=== PATIENT | female | born 1930 | race Caucasian/White ===

== ENCOUNTER → 2017-07-24 | Outpatient (CLI) | payer BC ==
[~2017-07-24] MED LIST: ASCO1CAP3 PO; ATOR10TA82 PO; CHOL100010 PO; CRAN1CAP15 PO; IBUP-1050 PO; MISCCAP80 PO; POLY335019 PO; RXC5 PO; SNG10 PO
[2017-07-24 16:57] LABS: BASO % 0.6 %; BASO ABS # 0.06 K/uL (0-0.2); COMPLETE YES; EOS % 1.4 %; HEMATOCRIT 45.1 % (37-47); IG% 0.2 %; LYMPH % 40.8 %; MEAN CELL VOLUME 96.8 fL (80-100); MEAN CORPUSCULAR HEMOGLOBIN 32.4 pg (25-34); MEAN CORPUSCULAR HGB CONC 33.5 g/dl (32-36); MEAN PLATELET VOLUME 9.7 fL (7.4-10.4); MONO % 9.1 %; NEUT % 47.9 %; PLATELET COUNT 265 K/uL (130-400); RED BLOOD COUNT 4.66 M/uL (4.2-5.4); WHITE BLOOD COUNT 10.78 K/uL (4.8-10.8)
[2017-07-24 17:15] LABS: BLOOD UREA NITROGEN 21 mg/dl (7-18); CALCIUM 9.2 mg/dl (8.5-10.1); CARBON DIOXIDE 29 mmol/L (21-32); CHLORIDE 103 mmol/L (98-107); CREATININE 0.84 mg/dl (0.60-1.20); GLUCOSE 102 mg/dl (70-99); POTASSIUM 4.1 mmol/L (3.5-5.1); SODIUM 138 mmol/L (136-145)
== END | disposition home or self-care (01) ==
LOC: C.LABBC 13:45
PROVIDERS: ATTEND Internal Medicine Geriatric Medicine
DX: I10 Essential (primary) hypertension (principal); M81.0 Age-related osteoporosis without current pathological fracture; J45.909 Unspecified asthma, uncomplicated

== ENCOUNTER → 2017-10-02 | Outpatient (CLI) | payer BC ==
--- NOTE | 2017-10-02 12:35 | DIAGNOSTIC IMAGING REPORT ---
KUB HISTORY: Acute generalized abdominal pain with constipation R30.0 COMPARISON: None available FINDINGS: The bowel gas pattern is non-obstructive. Moderate to extensive formed stool is seen throughout the colon extending from the cecum through the rectosigmoid. There is no organomegaly. Calcifications of the pelvis suggest phleboliths. No renal calculi. No ureteral calculi. No pneumoperitoneum or pneumatosis. No fracture. Mild levoscoliosis of the lumbar spine with posterior tahir and screw fusion hardware extending from L4 to S1. Multilevel intervertebral disc space narrowing and endplate spurring of the spine. Moderate degenerative changes of the bilateral hips. IMPRESSION: 1. Moderate to extensive pancolonic stool suggests constipation. 2. Nonobstructive bowel gas pattern. Electronically signed by: Martin Viera M.D. 10/02/2017 12:34 PM Dictated Date/Time: 10/02/2017 12:30 PM
== END | disposition home or self-care (01) ==
LOC: C.RAD1850 12:14
PROVIDERS: ATTEND Family Medicine
DX: R30.0 Dysuria (principal)

== ENCOUNTER → 2017-12-18 | Outpatient (CLI) | payer BC ==
[~2017-12-18] MED LIST changes: +ACET-1256 PO; -CHOL100010 PO; +CHOL1CAP67 PO; -CRAN1CAP15 PO; +CRAN500C2 PO; -IBUP-1050 PO; -MISCCAP80 PO; +PROB1CAP27 PO; -RXC5 PO; -SNG10 PO; +TRAM-10 PO
== END | disposition home or self-care (01) ==
LOC: C.LABBC 09:39
PROVIDERS: ATTEND Physician Assistant Medical
DX: N39.0 Urinary tract infection, site not specified (principal)

== ENCOUNTER 2018-01-02 05:42 | Inpatient (IN) | payer BC, OTHER ==
[2017-12-04 09:15] VITALS: BMI 29.0
--- NOTE | 2017-12-04 09:54 | PAT Medication Instructions ---
Service Date Dec 04, 2017. Current Home Medication List Acetaminophen (Tylenol), 2 TAB PO UD PRN for Pain Ascorbic Acid (Vitamin C), 1 CAP PO QPM Atorvastatin (Lipitor), 10 MG PO QPM Cholecalciferol (Vitamin D-3), 1 CAP PO QAM Cranberry (Vaccinium Macrocarp (Cranberry), 1 CAP PO QAM Polyethylene Glycol 3350 (Miralax), 17 GM PO UD PRN for Constipation Probiotic Product (Trubiotics), 1 CAP PO QAM Tramadol (Ultram), Unknown Dose PO QAM PRN for Pain Medication Instructions For Your Scheduled Surgery - Hold the following medications the morning of surgery: Cholecalciferol (Vitamin D-3), 1 CAP PO QAM Cranberry (Vaccinium Macrocarp (Cranberry), 1 CAP PO QAM Polyethylene Glycol 3350 (Miralax), 17 GM PO UD PRN for Constipation Probiotic Product (Trubiotics), 1 CAP PO QAM - Take the following medications the morning of surgery with a sip of water: Acetaminophen (Tylenol), 2 TAB PO UD PRN for Pain (if needed, can be taken up to four hours before surgery) Tramadol (Ultram), Unknown Dose PO QAM PRN for Pain (if needed, can be taken up to four hours before surgery) - Take the following medications as scheduled the night before surgery: Acetaminophen (Tylenol), 2 TAB PO UD PRN for Pain (if needed) Ascorbic Acid (Vitamin C), 1 CAP PO QPM Atorvastatin (Lipitor), 10 MG PO QPM Tramadol (Ultram), Unknown Dose PO QAM PRN for Pain (if needed) If you have any questions please call us at [phone] or [phone] or [phone]
--- NOTE | 2017-12-04 10:50 | DIAGNOSTIC IMAGING REPORT ---
CHEST 2 VIEWS ROUTINE HISTORY: 87 years-old Female PAT preoperative exam. No acute chest complaints. COMPARISON: Chest radiograph 10/21/2015 TECHNIQUE: PA and lateral views of the chest FINDINGS: Cardiac silhouette is mildly enlarged, unchanged. Atherosclerosis of the aorta. Lungs are mildly hyperinflated with diaphragmatic flattening. Moderate to large hiatal hernia. No pneumothorax, pleural effusion or overt pulmonary edema. Minimal subsegmental left basilar atelectasis/scarring. Bones of the chest appear grossly intact. Partially imaged fusion hardware of the lumbar spine. Degenerative changes are seen within the shoulders and spine. IMPRESSION: 1. Cardiomegaly without overt pulmonary edema. 2. Moderate to large hiatal hernia with partially intrathoracic stomach. The above report was generated using voice recognition software. It may contain grammatical, syntax or spelling errors. Electronically signed by: Martin Viera M.D. 12/04/2017 10:49 AM Dictated Date/Time: 12/04/2017 10:47 AM
[2017-12-04 11:27] LABS: BASO % 0.5 %; BASO ABS # 0.04 K/uL (0-0.2); EOS % 1.7 %; EOS ABS # 0.14 K/uL (0-0.5); HEMATOCRIT 44.3 % (37-47); HEMOGLOBIN 15.1 g/dL (12.0-16.0); IG# 0.01 K/uL (0.00-0.02); LYMPH % 42.7 %; LYMPH ABS # 3.61 K/uL (1.2-3.4); MEAN CELL VOLUME 94.5 fL (80-100); MEAN CORPUSCULAR HEMOGLOBIN 32.2 pg (25-34); MEAN CORPUSCULAR HGB CONC 34.1 g/dl (32-36); MEAN PLATELET VOLUME 9.3 fL (7.4-10.4); MONO % 9.9 %; MONO ABS # 0.84 K/uL (0.11-0.59); NEUT % 45.1 %; NEUT ABS # 3.81 K/uL (1.4-6.5); PLATELET COUNT 233 K/uL (130-400); RED CELL DISTRIBUTION WIDTH CV 13.8 % (11.5-14.5); RED CELL DISTRIBUTION WIDTH SD 47.6 fL (36.4-46.3); WHITE BLOOD COUNT 8.45 K/uL (4.8-10.8)
[2017-12-04 11:37] LABS: CALCIUM 8.9 mg/dl (8.5-10.1); CREATININE 0.64 mg/dl (0.60-1.20); POTASSIUM 4.1 mmol/L (3.5-5.1)
[2018-01-02] VITALS (14 sets, daily range): BP systolic 114–164; BP diastolic 67–85; PULSE 60–93; TEMP 36.3–36.6; O2SAT 88–98; Ht 152.4 cm; Wt 67.5 kg
[~2018-01-02] VITALS: Ht 152.4 cm; Wt 67.5 kg
[2018-01-02] MEDS ORDERED: CEFAZOLIN 1000MG IV PUSH 7.5 ML IV SCH (06:00)
[2018-01-02] MEDS ORDERED: LACTATED RINGER'S 1000ML 1,000 ML IV SCH (06:00)
[2018-01-02] MEDS ORDERED: CeleBREX 200 MG CAP PO SCH (06:00)
[2018-01-02] MEDS ORDERED: GABAPENTIN 300 MG CAP PO SCH (06:00)
[2018-01-02] MEDS ORDERED: ACETAMINOPHEN 500 MG TAB PO SCH (06:00)
[2018-01-02] MEDS ORDERED: ONDANSETRON INJ 2 MG/ML 2 ML VIAL ONE (06:50)
[2018-01-02] MEDS ORDERED: GLYCOPYRROLATE INJ 0.2 MG/ML VIAL ONE (06:50)
[2018-01-02] MEDS ORDERED: NEOSTIGMINE METHYLSULFATE 1 MG/ML 10ML VIAL ONE (06:50)
[2018-01-02] MEDS ORDERED: PROPOFOL IV EMULSION 10 MG/ML 20 ML VIAL ONE (06:50)
[2018-01-02] MEDS ORDERED: LIDOCAINE HCL 2% 2 ML VIAL (20MG/ML) ONE (06:50)
[2018-01-02] MEDS ORDERED: DEXAMETHASONE SOD INJ 4 MG/ML VIAL ONE (06:50)
[2018-01-02] MEDS ORDERED: FENTANYL CITRATE INJ 50 MCG/1 ML 2 ML VIAL ONE ×2 (06:50→08:55)
[2018-01-02] MEDS ORDERED: MIDAZOLAM HCL 1 MG/ML 2ML VIAL ONE (06:50)
[2018-01-02] MEDS ORDERED: BACITRACIN 50000 UNIT VIAL ONE (06:58)
[2018-01-02] MEDS ORDERED: BUPIVACAINE/EPINEPHRINE 0.5% MPF 1:200,000 30 ML VIAL ONE (07:03)
--- NOTE | 2018-01-02 07:25 | History & Physical Bridge Note ---
H&P Re-Evaluation Bridge Note: I have examined the patient, reviewed the History & Physical and in the interval since the performance of the History & Physical I have noted the following changes of clinical significance: No changes noted
--- NOTE | 2018-01-02 07:26 | History and Physical ---
History & Physical Date January 02, 2018. Chief Complaint Back and leg pain History of Present Illness The patient is a 87 year old female with complaints of back and leg pain Past Medical/Surgical History Medical Problems: (1) Arthritis (2) Hyperlipemia (3) Myalgia (4) Osteoporosis Additional History Hepatic Disease: No Endocrine Disorder: No Kidney Disease: No Hypertension: No Heart Disease: No Bleeding Tendencies: No Infectious Diseases: No Allergies Coded Allergies: Alendronate (Verified Adverse Reaction, Intermediate, GI SYMPTOMS, 01/02/18) Ciprofloxacin (Verified Adverse Reaction, Intermediate, GI SYMPTOMS, ) Naproxen (Verified Adverse Reaction, Intermediate, GI SYMPTOMS, 01/02/18) Home Medications Scheduled Ascorbic Acid (Vitamin C), 1 CAP PO QPM Atorvastatin (Lipitor), 10 MG PO QPM Cholecalciferol (Vitamin D-3), 1 CAP PO QAM Cranberry (Vaccinium Macrocarp (Cranberry), 1 CAP PO QAM Probiotic Product (Trubiotics), 1 CAP PO QAM Scheduled PRN Acetaminophen (Tylenol), 2 TAB PO UD PRN for Pain Polyethylene Glycol 3350 (Miralax), 17 GM PO UD PRN for Constipation Tramadol (Ultram), Unknown Dose PO QAM PRN for Pain Physical Examination Skin: warm/dry, no rash Eyes: normal inspection, EOMI, sclerae normal ENT: normal ENT inspection, pharynx normal Head: normocephalic, atraumatic Neck: supple, no adenopathy, trachea midline Respiratory/Chest: lungs clear, normal breath sounds, no respiratory distress Cardiovascular: regular rate, rhythm, no edema, no murmur Abdomen / GI: normal bowel sounds, non tender Back: normal inspection Extremities: normal inspection, normal range of motion Neurologic/Psych: no motor/sensory deficits, alert, normal reflexes, oriented x 3 Diagnosis Lumbar spinal stenosis with neurogenic claudication Plan of Treatment Lumbar decompression L1-2 with in situ fusion L1-L2
[2018-01-02] MEDS ORDERED: METOCLOPRAMIDE HCL INJ 5 MG/ML 2 ML VIAL ONE (08:19)
[2018-01-02] MEDS ORDERED: ROCURONIUM BROMIDE 10 MG/ML 5 ML VIAL ONE (08:19)
[2018-01-02] MEDS ORDERED: ONDANSETRON INJ 2 MG/ML 2 ML VIAL IV PRN (08:45)
[2018-01-02] MEDS ORDERED: ATROPINE SULFATE 0.1 MG/ML 5ML SYR IV PRN (08:45)
[2018-01-02] MEDS ORDERED: EpHEDrine SULFATE INJ 50 MG/ML AMP IV PRN (08:45)
[2018-01-02] MEDS ORDERED: HYDROmorphone INJ 2 MG/ML SYR/VIAL IV PRN (08:45)
[2018-01-02] MEDS ORDERED: PROMETHAZINE HCL INJ 12.5 MG in SODIUM CHLORIDE 0.9% 50ML 50 ML IV PRN ×2 (08:45→09:00)
[2018-01-02] MEDS ORDERED: FENTANYL CITRATE INJ 50 MCG/1 ML 2 ML VIAL IV PRN (08:45)
[2018-01-02] MEDS ORDERED: FLOSEAL HEMOSTATIC MATRIX 10ML TOP ONE (08:52)
--- NOTE | 2018-01-02 08:56 | [facility] Operative Report ---
Operative Report Operative Date January 02, 2018. Pre-Operative Diagnosis Lumbar spinal stenosis with neurogenic claudication Post-Operative Diagnosis Same Procedure(s) Performed 1. Lumbar decompression medial facetectomies foraminotomies L1 to. #2 discectomy L1 to. #3 posterior spinal fusion L1 to. #4 placement of infuse collagen sponge combined with master graft in the posterior lateral gutters. #5 placement of locally harvested morselized autograft in the posterior lateral gutters. Surgeon Dr. Wilson Dumont Camera Supervisor Surgeon(s) Karen Marcano PA-C Estimated Blood Loss 75 Findings Severe spinal stenosis with herniated nucleus pulposus Anesthesia Type General Description of Procedure Patient was met with preoperatively case discussed all questions addressed. After informed consent obtained patient was taken to the operative suite underwent intubation and placed in the prone position on the Bernardo table on top of the Peter frame. All bony prominences were well-padded eyes inspected to ensure no external pressure placed upon the. This point the lumbar spine was prepped and draped in the normal sterile fashion. Sharp dissection with the assistance of Bovie cautery was performed down to and exposing the lamina and transverse processes of L1-2. Then performed complete laminectomy of all 1 as well as bilateral medial facetectomies foraminotomies. After this is complete I was able to remove the massive central disc herniation at the 1 to level. Explored the area several times to ensure all loose fragments were dressed. This point the transverse processes and remaining facets of L1 and L2 were burred to subcortical bleeding bone InFUSE collagen sponge mass graft and locally harvested morselized autograft placed in the posterior gutters. A 15 round MATHIEU drain inserted. Incision was then closed with 1 Vicryl in the fascia 2 -0 Vicryl subcutaneous and 4 Monocryl for fashion closure. Steri-Strips sterile dressings placed. Patient will continue PACU in stable condition. Please note Karen Marcano was present throughout the entire procedure involved in patient positioning complex portions of the surgery and fashion closure. I attest to the content of the Intraoperative Record and any orders documented therein. Any exceptions are noted below.
[2018-01-02] MEDS ORDERED: SOD PHOSPHATE/SOD BIPHOSPHATE ENEMA 132 ML BTL PR PRN (09:00)
[2018-01-02] MEDS ORDERED: LORAZEPAM 0.5 MG TAB PO PRN (09:00)
[2018-01-02] MEDS ORDERED: MAGNESIUM HYDROXIDE SUSP 30 ML UDC PO PRN (09:00)
[2018-01-02] MEDS ORDERED: hydrOXYzine HCL 25 MG TAB PO PRN (09:00)
[2018-01-02] MEDS ORDERED: BISACODYL 10 MG SUPP PR PRN (09:00)
[2018-01-02] MEDS ORDERED: ALUMINUM/MAGNESIUM SUSP 30 ML UDC PO PRN (09:00)
[2018-01-02] MEDS ORDERED: DO NOT ADMINISTER PNEUMOCOCCAL VACCINE PRN (09:00)
[2018-01-02] MEDS ORDERED: ACETAMINOPHEN 500 MG TAB PO PRN (09:00)
[2018-01-02] MEDS ORDERED: DO NOT ADMINISTER FLU VACCINE PRN (09:00)
[2018-01-02] MEDS ORDERED: METOCLOPRAMIDE HCL INJ 5 MG/ML 2 ML VIAL IV PRN (09:00)
[2018-01-02] MEDS ORDERED: FAMOTIDINE 20 MG TAB PO PRN (09:00)
[2018-01-02] MEDS ORDERED: NALOXONE HCL 0.4 MG/1 ML VIAL/CARP IV PRN (09:00)
[2018-01-02] MEDS ORDERED: LORAZEPAM INJ 0.5 MG in SYRINGE 0 ML IV PRN (09:00)
--- NOTE | 2018-01-02 10:00 | Anesthesiology Progress Note ---
Anesthesia Post Op Note Date & Time January 02, 2018 at 10:00 Vital Signs Pain Intensity: 0 Vital Signs Past 12 Hours Date Time Temp Pulse Resp B/P (MAP) Pulse Ox O2 Delivery O2 Flow Rate FiO2 01/02/18 09:46 78 15 01/02/18 09:46 77 15 144/72 95 01/02/18 09:42 36.4 79 20 144/72 (101) 97 Nasal Cannula 4 01/02/18 09:41 78 14 97 01/02/18 09:41 78 14 01/02/18 09:40 155/69 01/02/18 09:36 84 11 98 01/02/18 09:36 84 11 01/02/18 09:35 140/75 01/02/18 09:34 79 17 98 01/02/18 09:34 80 17 01/02/18 09:30 155/76 01/02/18 09:29 82 12 01/02/18 09:29 82 12 99 01/02/18 09:25 156/76 01/02/18 09:24 91 18 98 01/02/18 09:24 91 18 01/02/18 09:20 152/79 01/02/18 09:19 36.2 106 16 167/89 (109) 99 Oxymask 10 01/02/18 09:19 105 23 167/89 100 01/02/18 09:19 106 23 01/02/18 06:21 36.6 93 18 164/85 93 Room Air Notes Mental Status: alert / awake / arousable, participated in evaluation Pt Amnestic to Procedure: Yes Nausea / Vomiting: adequately controlled Pain: adequately controlled Airway Patency, RR, SpO2: stable & adequate BP & HR: stable & adequate Hydration State: stable & adequate Anesthetic Complications: no major complications apparent
--- NOTE | 2018-01-02 12:38 | Medical Consult ---
Consultation Date of Consultation: January 02, 2018. Attending Physician: Wilson Dumont D.O. History of Present Illness 87 y/o F Hx spinal stenosis, HTN, NPL, chronic back and leg pain - post elective L1-L2 decompression and fusion. A medical consult is requested for post-op management. The pt is recovering well - denies excessive pain, CP, SOB, nausea/vomiting, fevers. Past Medical/Surgical History 1) HTN - in record - not treated 2) HPL 3) Spinal stenosis - previous lumbar surgery 2015 Family History Cancer Social History Smoking Status: Never Smoker Marital Status: Housing Status: lives with significant other Occupation Status: employed Allergies Coded Allergies: Alendronate (Verified Adverse Reaction, Intermediate, GI SYMPTOMS, 01/02/18) Ciprofloxacin (Verified Adverse Reaction, Intermediate, GI SYMPTOMS, ) Naproxen (Verified Adverse Reaction, Intermediate, GI SYMPTOMS, 01/02/18) Current Inpatient Medications Current Inpatient Medications Medications (Trade) Dose Ordered Sig/Niharika Route Start Time Stop Time Status Last Admin Dose Admin Lactated Ringer's 1,000 ml @ 15 mls/hr Q24H IV 01/02/18 06:00 01/03/18 05:59 01/02/18 06:18 15 MLS/HR Cefazolin Sodium 7.5 ml @ 2.5 mls/min PREOP IV 01/02/18 06:00 01/02/18 18:00 01/02/18 07:36 2.5 MLS/MIN Acetaminophen (Tylenol Tab) 1,000 mg PREOP PO 01/02/18 06:00 01/02/18 18:00 01/02/18 06:39 1,000 MG Celecoxib (CeleBREX CAP) 200 mg PREOP PO 01/02/18 06:00 01/02/18 18:00 01/02/18 06:40 200 MG Gabapentin (Neurontin Cap) 300 mg PREOP PO 01/02/18 06:00 01/02/18 18:00 01/02/18 06:39 300 MG Fentanyl Citrate (Fentanyl Inj) 25 mcg Q5M PRN IV 01/02/18 08:45 01/02/18 13:45 Hydromorphone HCl (Dilaudid Inj) 0.25 mg Q5M PRN IV 01/02/18 08:45 01/02/18 13:45 Ondansetron HCl (Zofran Inj) 4 mg ONE PRN IV 01/02/18 08:45 01/02/18 13:45 Promethazine HCl 12.5 mg/Sodium Chloride 50.5 ml @ 202 mls/hr ONE PRN IV 01/02/18 08:45 01/02/18 13:45 Ephedrine Sulfate (EpHEDrine SULFATE INJ) 5 mg Q5M PRN IV 01/02/18 08:45 01/02/18 15:45 Atropine Sulfate (Atropine Sulfate 0.1mg/ml Inj) 0.5 mg Q1M PRN IV 01/02/18 08:45 01/02/18 15:45 Promethazine HCl 12.5 mg/Sodium Chloride 50.5 ml @ 202 mls/hr Q6H PRN IV 01/02/18 09:00 02/01/18 08:59 Ondansetron HCl (Zofran Inj) 4 mg Q6H PRN IV 01/02/18 09:00 02/01/18 08:59 Metoclopramide HCl (Reglan Inj) 10 mg Q6H PRN IV 01/02/18 09:00 02/01/18 08:59 Lorazepam (Ativan Tab) 0.5 mg Q8H PRN PO 01/02/18 09:00 02/01/18 08:59 Lorazepam 0.5 mg/ Syringe 0.25 ml @ 1 mls/min Q8H PRN IV 01/02/18 09:00 02/01/18 08:59 Pneumococcal Polysaccharide Vaccine 1 ea PRN PRN N/A 01/02/18 09:00 02/01/18 08:59 Influenza Virus Vacc Triv Types A&B 1 ea PRN PRN N/A 01/02/18 09:00 02/01/18 08:59 Polyethylene (Miralax Powder Packet) 17 gm Q6 PO 01/04/18 06:00 02/03/18 05:59 Bisacodyl (Dulcolax Supp) 10 mg DAILY PRN UT 01/02/18 09:00 02/01/18 08:59 Magnesium Hydroxide (Milk Of Magnesia Susp) 30 ml DAILY PRN PO 01/02/18 09:00 02/01/18 08:59 Oxycodone HCl (Roxicodone Immediate Rel Tab) 5-10mg prn moderate to sev... Q4H PRN PO 01/03/18 06:00 01/17/18 05:59 Cefazolin Sodium 1000 mg/Syringe 7.5 ml @ 2.5 mls/min Q8H IV 01/02/18 16:00 01/03/18 00:02 Lactated Ringer's 1,000 ml @ 150 mls/hr Q6H40M IV 01/02/18 08:56 02/01/18 08:55 Acetaminophen (Tylenol Tab) 1,000 mg Q8H PRN PO 01/02/18 09:00 02/01/18 08:59 Acetaminophen 100 ml @ 400 mls/hr Q8H PRN IV 01/02/18 09:00 02/01/18 08:59 Naloxone HCl (Narcan Inj) 0.1 mg Q5M PRN IV 01/02/18 09:00 02/01/18 08:59 Senna/Docusate Sodium (Senokot S Tab) 2 tab HS PO 01/02/18 21:00 02/01/18 20:59 Sodium Biphosphate/ Sodium Phosphate (Fleet Enema) 132 ml ONE PRN UT 01/02/18 09:00 02/01/18 08:59 Hydroxyzine HCl (Vistaril Tab) 25 mg Q8H PRN PO 01/02/18 09:00 02/01/18 08:59 Al Hydroxide/Mg Hydroxide (Maalox Susp) 30 ml Q6H PRN PO 01/02/18 09:00 02/01/18 08:59 Famotidine (Pepcid Tab) 20 mg Q12 PRN PO 01/02/18 09:00 02/01/18 08:59 Diphenhydramine HCl (Benadryl Cap) 25 mg Q6H PRN PO 01/02/18 09:00 02/01/18 08:59 Atorvastatin Calcium (Lipitor Tab) 10 mg QPM PO 01/02/18 21:00 02/01/18 20:59 Review of Systems Constitutional: No fever, No chills, No sweats Eyes: No worsening of vision ENT: No hearing loss, No nasal symptoms Respiratory: No cough, No wheezing Cardiovascular: No chest pain, No orthopnea, No PND Abdomen: No pain, No nausea, No vomiting Musculoskeletal: + problem reported (Reports minimal back pain which she states was worse prior to surgery) Genitourinary - Female: No dysuria, No urinary frequency, No urinary urgency Neurologic: No memory loss, No weakness Psychiatric: No depression symptoms Endocrine: No fatigue Hematologic / Lymphatic: No abnormal bleeding/bruising Integumentary: No rash Physical Exam Date Time Temp Pulse Resp B/P (MAP) Pulse Ox O2 Delivery O2 Flow Rate FiO2 01/02/18 11:15 68 16 140/77 (98) 96 01/02/18 11:04 98 Nasal Cannula 2.0 01/02/18 10:45 65 16 155/78 (103) 98 01/02/18 10:42 Nasal Cannula 01/02/18 10:38 88 Nasal Cannula 2.0 01/02/18 10:15 36.3 74 14 146/70 (95) 98 Nasal Cannula 4.0 01/02/18 09:57 72 14 01/02/18 09:57 73 14 96 01/02/18 09:56 144/70 01/02/18 09:52 75 12 97 01/02/18 09:52 77 12 01/02/18 09:50 148/75 01/02/18 09:47 79 21 01/02/18 09:47 79 21 97 01/02/18 09:46 78 15 01/02/18 09:46 77 15 144/72 95 01/02/18 09:42 36.4 79 20 144/72 (101) 97 Nasal Cannula 4 01/02/18 09:41 78 14 97 01/02/18 09:41 78 14 01/02/18 09:40 155/69 01/02/18 09:36 84 11 98 01/02/18 09:36 84 11 01/02/18 09:35 140/75 01/02/18 09:34 79 17 98 01/02/18 09:34 80 17 01/02/18 09:30 155/76 01/02/18 09:29 82 12 01/02/18 09:29 82 12 99 01/02/18 09:25 156/76 01/02/18 09:24 91 18 98 01/02/18 09:24 91 18 01/02/18 09:20 152/79 01/02/18 09:19 36.2 106 16 167/89 (109) 99 Oxymask 10 01/02/18 09:19 105 23 167/89 100 01/02/18 09:19 106 23 01/02/18 06:21 36.6 93 18 164/85 93 Room Air General Appearance: WD/WN, no apparent distress Head: normocephalic Eyes: normal inspection ENT: normal ENT inspection, pharynx normal Neck: supple, no JVD Respiratory/Chest: chest non-tender, lungs clear, normal breath sounds Cardiovascular: regular rate, rhythm, no edema Abdomen/GI: normal bowel sounds, non tender, soft Back: + pertinent finding (Did not sit pt up as she had not yet repositioned) Extremities/Musculoskelatal: normal inspection, no calf tenderness, normal capillary refill Neurologic/Psych: supervisor beam department II-XII nml as tested, no motor/sensory deficits (upper extrems), oriented x 3 Skin: normal color Assessment & Plan 87 y/o F Hx spinal stenosis, HTN, NPL, chronic back and leg pain - post elective L1-L2 decompression and fusion. A medical consult is requested for post-op management. The pt is recovering well - denies excessive pain, CP, SOB, nausea/vomiting, fevers. 1) Post-op decompression/fusion - pain control is adequate - PT/OT and anticoagulation per ortho 2) HTN - does not currently treat - borderline HTN in hospital thus far - will monitor 3) HPL - cont Lipitor Total time for this consult including review of previous labs tammy, review of ortho note - discussion/exam with pt 30 min
[2018-01-02] MEDS ORDERED: NURSING VERBAL MED ORDER ONE ×2 (13:15→22:30)
[2018-01-02] MEDS: OXYCODONE HCL IR 5 MG TAB (IMMEDIATE RELEASE) PO PRN (13:39)
[2018-01-02] MEDS: LACTATED RINGER'S 1000ML 1,000 ML IV SCH ×2 (13:42→20:24)
[2018-01-02] MEDS: CEFAZOLIN IV 1,000 MG in SYRINGE 0 ML IV SCH (16:29)
[2018-01-02] MEDS: DOCUSATE SODIUM/SENNA 50/8.6MG TAB PO SCH (22:09)
[2018-01-02] MEDS: ATORVASTATIN 10 MG TAB PO SCH (22:09)
[2018-01-03] MEDS: CEFAZOLIN IV 1,000 MG in SYRINGE 0 ML IV SCH (00:09)
[2018-01-03] MEDS: LACTATED RINGER'S 1000ML 1,000 ML IV SCH (02:48)
[2018-01-03 03:06] VITALS: BP 148/64; PULSE 66; TEMP 36.5; O2SAT 95
[2018-01-03] MEDS: OXYCODONE HCL IR 5 MG TAB (IMMEDIATE RELEASE) PO PRN ×4 (05:12→16:58)
[2018-01-03] MEDS ORDERED: OXYCODONE HCL IR 5 MG TAB (IMMEDIATE RELEASE) PO PRN (06:00)
[2018-01-03 06:15] LABS: BASO % 0.1 %; BASO ABS # 0.01 K/uL (0-0.2); EOS % 0.1 %; EOS ABS # 0.01 K/uL (0-0.5); HEMATOCRIT 39.3 % (37-47); HEMOGLOBIN 13.2 g/dL (12.0-16.0); IG# 0.05 K/uL (0.00-0.02); LYMPH % 18.9 %; LYMPH ABS # 2.98 K/uL (1.2-3.4); MEAN CORPUSCULAR HEMOGLOBIN 31.6 pg (25-34); MEAN CORPUSCULAR HGB CONC 33.6 g/dl (32-36); MEAN PLATELET VOLUME 9.2 fL (7.4-10.4); MONO % 9.8 %; MONO ABS # 1.55 K/uL (0.11-0.59); NEUT % 70.8 %; NEUT ABS # 11.16 K/uL (1.4-6.5); PLATELET COUNT 215 K/uL (130-400); RED CELL DISTRIBUTION WIDTH CV 13.6 % (11.5-14.5); RED CELL DISTRIBUTION WIDTH SD 46.8 fL (36.4-46.3); WHITE BLOOD COUNT 15.76 K/uL (4.8-10.8)
[2018-01-03] MEDS ORDERED: NURSING DECISION MEDICATION ORDER SCH (06:15)
[2018-01-03 06:42] LABS: CALCIUM 8.5 mg/dl (8.5-10.1); CREATININE 0.65 mg/dl (0.60-1.20); POTASSIUM 3.9 mmol/L (3.5-5.1)
--- NOTE | 2018-01-03 08:19 | DIAGNOSTIC IMAGING REPORT ---
LUMBAR SPINE, INTRAOPERATIVE FLUOROSCOPY HISTORY: L1-2 fusion and decompression. FLUOROSCOPY TIME: 4 seconds. FINDINGS: Intraoperative fluoroscopy was provided for the lumbar spine. 2 fluoroscopic spot images were obtained. Initial images demonstrate a spinal needle posterior to the lower thoracic region. The exact level is difficult to determine. The second image demonstrates the spinal needle posterior to the T12-L1 level. IMPRESSION: Fluoroscopy provided for a level designation prior to and L1-L2 posterior fusion.. Electronically signed by: Chalino Knapp M.D. 01/03/2018 8:17 AM Dictated Date/Time: 01/03/2018 8:16 AM
[2018-01-03] MEDS ORDERED: RXC5 PO (09:59)
--- NOTE | 2018-01-03 09:59 | Discharge Instructions ---
Discharge Instructions Date of Service January 03, 2018. Admission Reason for Admission: Lumbar Spinal Stenosis Discharge Discharge Diagnosis / Problem: lumbar stenosis Discharge Goals Goal(s): Improve function Activity Recommendations Activity Limitations: per Instructions/Follow-up section . Instructions / Follow-Up Instructions / Follow-Up ACTIVITY RECOMMENDATIONS: SELF CARE INSTRUCTIONS AFTER THORACIC/LUMBAR FUSIONS 1. You may walk to your tolerance. It is good exercise for your legs and back. Expect some back and intermittent leg aches and pains. 2. You may perform "counter-top" level activities (make a sandwich, veronica with a project, etc.). 3. No bending or lifting of more than 10 pounds or back twisting of any nature (roll like a log when turning in bed). 4. You may ride in a car for 20-30 minutes at a time. No driving until after your first visit with your doctor. 5. Frequent changes of position and restricting sitting to 30 minutes at a time will help limit the amount of back spasms and stiffness you may experience. 6. You may discontinue the use of ambulatory aids (cane, crutches, etc.) once your strength and confidence allow. 7. You may sporting goods salesperson the shower and let water strike your incision when you arrive home at least once daily. Do not take a tub bath, sit in a hot tub or go into a swimming pool until after your first recheck in the office. SPECIAL CARE INSTRUCTIONS: VERY IMPORTANT TO READ AND REVIEW A. Your surgical incision has been closed with a cosmetic suture under the skin that will dissolve in about 6 weeks. In 14 days, you can use a pair of clean scissors and cut the suture that is left outside of the skin at the ends of your incision. 1. The small skin tapes can be removed 7 days after surgery if they have not fallen off by that point. 2. You may keep the wound open to air as much as possible to promote healing after post-op day number 5 unless told otherwise by your doctor. 3. If you think the wound looks like it is becoming infected (redness or worsening drainage) and/or you are experiencing fever, chill or worsening back pain and muscle spasms, contact the office so that we may evaluate you as soon as possible. B. Complications are uncommon, but please contact us if you have any signs or symptoms of: 1. wound infection (fever higher than 102.5 degrees F, redness, separation of wound, drainage, or increasing pain from the incision) 2. blood clots in legs (pain, swelling, redness and warmth in legs) 3. urinary tract infection (fever higher than 102.5 degrees F, burning upon urination or increased frequency of urination) 4. nerve problems (inability to walk on your toes or heels, numbness, loss of bowel or bladder control) 5. any other symptoms that concern you C. Please call the office at if you have any concerns or questions about your operation or recovery. D. No smoking! Smoking drastically decreases the chance of a solid fusion. E. Do not take any anti-inflammatory medications (Indocin, Advil, Motrin, Aspirin, Naprosyn, etc.) as these may inhibit the chance of a solid fusion. Tylenol is okay to take for pain. MANAGING PAIN AFTER SPINAL SURGERY 1. Narcotic medication is intended for short-term use and will be provided for surgical pain. Surgical pain usually lasts for a period of 4-6 weeks. Narcotic medication includes Percocet, Vicodin, Darvocet, Tylenol #3 or Lortab. 2. Longer-term pain is more appropriately treated with non-narcotic medication such as Tylenol ES. 3. Muscle spasm is not appropriately treated with narcotics. Muscle relaxers such as Soma, Flexeril or Skelaxin can be used along with Tylenol ES. 4. Remember that we all live with some "aches and pains". This is not unusual or uncommon after an injury or as we get older. a. Back pain is expected and may include muscle spasms for 4 to 6 weeks after surgery. The pain should gradually improve. If the pain worsens for no apparent reason, please contact the office. b. Intermittent leg pain may also be experienced and should not be concerned about unless it worsens for no apparent reason. If so, please contact the office. 5. We will provide appropriate medication within the normal guidelines of their prescribed use. We will also be very cautious and aware of potential abuse and extended duration of patients' medication needs. a. Pain medications are for your comfort and to assist with sleep and rest so that the tissue can heal. They are not provided in order to return to normal activity and should not be used through the day. To do so or worsening pain at night can result from ongoing tissue damage and development of tolerance to the prescribed medicine. 6. Please allow 2-3 days to process refills. Prescriptions will not be mailed but must be picked up at the office. FOLLOW UP VISIT: Keep your scheduled follow-up appointment. Any questions, please call the office at . Current Hospital Diet Patient's current hospital diet: Regular Diet Discharge Diet Recommended Diet: Regular Diet Procedures Procedures Performed: L1-2 Posterior Lumbar Decompression, L1-2 In Situ Fusion Pending Studies Studies pending at discharge: no Medical Emergencies . Who to Call and When: Medical Emergencies: If at any time you feel your situation is an emergency, please call 911 immediately. . Non-Emergent Contact Non-Emergency issues call your: Primary Care Provider . "Provider Documentation" section prepared by Wilson Dumont. .
--- NOTE | 2018-01-03 10:04 | Progress Note ---
Progress Note Date of Service January 03, 2018. Progress Note Patient complaining of considerable back and leg pain. Vital signs are stable. MATHIEU drain decreasing appropriately. On exam she is in a chair at the bedside. She has good strength testing but is hypersensitive to even modest palpation of the lower extremities. She has been walking. Assessment status post lumbar decompression fusion per plan at this time will continue with therapy suspect she has a component of chronic nerve pain in the leg symptoms. We will see how she progresses over the next day or so and possibly discharge home with her family.
[2018-01-03 15:01] VITALS: BP 125/66; PULSE 88; TEMP 36.4; O2SAT 96
--- NOTE | 2018-01-03 15:58 | Medical Consult ---
Consultation Date of Consultation: January 03, 2018. Attending Physician: Wilson Dumont D.O. Reason for Consultation: medical management History of Present Illness Ms. Crooks is post op day 1 from a L1-2 fusion. She is experiencing some pain in her back and legs but states that it is tolerable. ROS Constitutional: no chills, aches, sweats or fever Respiratory: no sob,cough, sputum, or wheezing Cardiac: no chest pain, palpitations, edema, orthopnea or lightheadedness GI: no abdominal pain, nausea, vomiting, diarrhea or constipation : no dysuria or hesitancy Extremities: see HPI Skin: no rash All other systems reviewed and negative Family History Family history was reviewed; no changes noted. Social History Smoking Status: Never Smoker Alcohol Use: none Marital Status: Housing Status: lives with significant other Occupation Status: employed Allergies Coded Allergies: Alendronate (Verified Adverse Reaction, Intermediate, GI SYMPTOMS, 01/02/18) Ciprofloxacin (Verified Adverse Reaction, Intermediate, GI SYMPTOMS, ) Naproxen (Verified Adverse Reaction, Intermediate, GI SYMPTOMS, 01/02/18) Home Medications Active Oxycodone HCl 5 Mg Tab 5-10 Mg PO Q4H PRN 30 Days Reported Miralax (Polyethylene Glycol 3350) 1 Pow Pow 17 Gm PO UD PRN Trubiotics (Probiotic Product) 1 Cap Cap 1 Cap PO QAM Cranberry (Cranberry (Vaccinium Macrocarp) 500 Mg Cap 1 Cap PO QAM Vitamin D-3 (Cholecalciferol) 1,000 Unit Cap 1 Cap PO QAM Tylenol (Acetaminophen) 500 Mg Tab 2 Tab PO UD PRN 7 Days Ultram (Tramadol HCl) Unknown Strength Tab Unknown Dose PO QAM PRN PT MED LIST READS : 500 MG - PT REPORTS TAKES ONLY ONCE A DAY Lipitor (Atorvastatin Calcium) 10 Mg Tab 10 Mg PO QPM Vitamin C (Ascorbic Acid) 500 Mg Cap 1 Cap PO QPM Current Inpatient Medications Current Inpatient Medications Medications (Trade) Dose Ordered Sig/Niharika Route Start Time Stop Time Status Last Admin Dose Admin Promethazine HCl 12.5 mg/Sodium Chloride 50.5 ml @ 202 mls/hr Q6H PRN IV 01/02/18 09:00 02/01/18 08:59 Ondansetron HCl (Zofran Inj) 4 mg Q6H PRN IV 01/02/18 09:00 02/01/18 08:59 Metoclopramide HCl (Reglan Inj) 10 mg Q6H PRN IV 01/02/18 09:00 02/01/18 08:59 Lorazepam (Ativan Tab) 0.5 mg Q8H PRN PO 01/02/18 09:00 02/01/18 08:59 Lorazepam 0.5 mg/ Syringe 0.25 ml @ 1 mls/min Q8H PRN IV 01/02/18 09:00 02/01/18 08:59 Pneumococcal Polysaccharide Vaccine 1 ea PRN PRN N/A 01/02/18 09:00 02/01/18 08:59 Influenza Virus Vacc Triv Types A&B 1 ea PRN PRN N/A 01/02/18 09:00 02/01/18 08:59 Polyethylene (Miralax Powder Packet) 17 gm Q6 PO 01/04/18 06:00 02/03/18 05:59 Bisacodyl (Dulcolax Supp) 10 mg DAILY PRN NV 01/02/18 09:00 02/01/18 08:59 Magnesium Hydroxide (Milk Of Magnesia Susp) 30 ml DAILY PRN PO 01/02/18 09:00 02/01/18 08:59 Acetaminophen (Tylenol Tab) 1,000 mg Q8H PRN PO 01/02/18 09:00 02/01/18 08:59 Acetaminophen 100 ml @ 400 mls/hr Q8H PRN IV 01/02/18 09:00 02/01/18 08:59 Naloxone HCl (Narcan Inj) 0.1 mg Q5M PRN IV 01/02/18 09:00 02/01/18 08:59 Senna/Docusate Sodium (Senokot S Tab) 2 tab HS PO 01/02/18 21:00 02/01/18 20:59 01/02/18 22:09 2 TAB Sodium Biphosphate/ Sodium Phosphate (Fleet Enema) 132 ml ONE PRN NV 01/02/18 09:00 02/01/18 08:59 Hydroxyzine HCl (Vistaril Tab) 25 mg Q8H PRN PO 01/02/18 09:00 02/01/18 08:59 Al Hydroxide/Mg Hydroxide (Maalox Susp) 30 ml Q6H PRN PO 01/02/18 09:00 02/01/18 08:59 Famotidine (Pepcid Tab) 20 mg Q12 PRN PO 01/02/18 09:00 02/01/18 08:59 Diphenhydramine HCl (Benadryl Cap) 25 mg Q6H PRN PO 01/02/18 09:00 02/01/18 08:59 Atorvastatin Calcium (Lipitor Tab) 10 mg QPM PO 01/02/18 21:00 02/01/18 20:59 01/02/18 22:09 10 MG Oxycodone HCl (Roxicodone Immediate Rel Tab) 5-10mg prn moderate to sev... Q4H PRN PO 01/02/18 13:45 01/16/18 13:44 01/03/18 15:22 5 MG Physical Exam Date Time Temp Pulse Resp B/P (MAP) Pulse Ox O2 Delivery O2 Flow Rate FiO2 01/03/18 15:01 36.4 88 18 125/66 (85) 96 Room Air 01/03/18 08:50 Room Air 01/03/18 03:06 36.5 66 16 148/64 (92) 95 Room Air 01/03/18 00:00 Room Air 01/02/18 23:10 36.3 60 16 139/74 (95) 92 Room Air 01/02/18 19:14 92 Room Air 01/02/18 16:44 97 Nasal Cannula 2.0 01/02/18 16:40 88 Room Air 01/02/18 16:30 Nasal Cannula General: no distress Eyes: normal inspection, PERLL Respiratory: chest non tender, clear to auscultation, normal breath sounds, no respiratory distress, no accessory muscle use Cardiac: regular rate and rhythm, no rub or gallop, no murmur, no edema, no jvd GI/: active bowel sounds, no abd pain or tenderness, soft, non distended Extremities: normal sensation Neuro/Psych: alert and oriented x 3, normal mood and affect Skin: normal color, dry Laboratory Results Last 24 Hours Test 01/03/18 05:43 White Blood Count 15.76 K/uL Red Blood Count 4.18 M/uL Hemoglobin 13.2 g/dL Hematocrit 39.3 % Mean Corpuscular Volume 94.0 fL Mean Corpuscular Hemoglobin 31.6 pg Mean Corpuscular Hemoglobin Concent 33.6 g/dl Platelet Count 215 K/uL Mean Platelet Volume 9.2 fL Neutrophils (%) (Auto) 70.8 % Lymphocytes (%) (Auto) 18.9 % Monocytes (%) (Auto) 9.8 % Eosinophils (%) (Auto) 0.1 % Basophils (%) (Auto) 0.1 % Neutrophils # (Auto) 11.16 K/uL Lymphocytes # (Auto) 2.98 K/uL Monocytes # (Auto) 1.55 K/uL Eosinophils # (Auto) 0.01 K/uL Basophils # (Auto) 0.01 K/uL RDW Standard Deviation 46.8 fL RDW Coefficient of Variation 13.6 % Immature Granulocyte % (Auto) 0.3 % Immature Granulocyte # (Auto) 0.05 K/uL Sodium Level 142 mmol/L Potassium Level 3.9 mmol/L Chloride Level 107 mmol/L Carbon Dioxide Level 30 mmol/L Anion Gap 5.0 mmol/L Blood Urea Nitrogen 13 mg/dl Creatinine 0.65 mg/dl Est Creatinine Clear Calc Drug Dose 51.3 ml/min Estimated GFR () 91.9 Estimated GFR (Non- 79.3 BUN/Creatinine Ratio 19.6 Random Glucose 114 mg/dl Calcium Level 8.5 mg/dl Assessment & Plan Ms. Crooks is an 87 year old woman post op day 1 spinal fusion Post op - hgb stable, cbc am, no apparent bleeding, - Bowel regimen, DVT prophylaxis, pain control, PT/OT per primary team HLD - continue home statin Hypertension - controlled, no need for medical management at this time GERD - patient does not take medications at home for this - prn famotidine Medicine will sign off at this time. Please let us know if we can be of further help. Reviewed: Pt Seen/Exam by Me History FELICIANO Supervision Note: I interviewed and examined the patient. Discussed with FELICIANO Quezada and agree with findings and plan as documented in the note. Any exceptions or clarifications are listed here: Pt having lower back and leg pain. No CP or SOB, no nausea nd amaya po Vitals reviewed\RRR no mgr CTAB breathing unlabored Ext no edema or calf tenderness 87 yo femlae with HL, borderline HTN, lumbar spinal stenosis, here with lumbar decompression and fusion. -doing well post-op -no changes at this time Hospitalist Service signing off. Please reconsult if any acute issues arise. Documented By: Sophy Richey
[2018-01-03] MEDS: ATORVASTATIN 10 MG TAB PO SCH (21:13)
[2018-01-03] MEDS: DOCUSATE SODIUM/SENNA 50/8.6MG TAB PO SCH (21:13)
[2018-01-03] MEDS: ACETAMINOPHEN IV 100 ML IV PRN (21:14)
[2018-01-03 22:58] VITALS: BP 115/63; PULSE 100; TEMP 36.8; O2SAT 91
[2018-01-04] MEDS: POLYETHYLENE (MIRALAX) 17 GM PACK PO SCH ×4 (05:57→23:59)
[2018-01-04 06:35] LABS: HEMATOCRIT 40.4 % (37-47); HEMOGLOBIN 13.7 g/dL (12.0-16.0); MEAN CELL VOLUME 94.6 fL (80-100); MEAN CORPUSCULAR HEMOGLOBIN 32.1 pg (25-34); MEAN CORPUSCULAR HGB CONC 33.9 g/dl (32-36); MEAN PLATELET VOLUME 9.5 fL (7.4-10.4); PLATELET COUNT 225 K/uL (130-400); RED CELL DISTRIBUTION WIDTH CV 14.2 % (11.5-14.5); RED CELL DISTRIBUTION WIDTH SD 48.7 fL (36.4-46.3); WHITE BLOOD COUNT 12.52 K/uL (4.8-10.8)
[2018-01-04 07:11] LABS: CALCIUM 8.3 mg/dl (8.5-10.1); CREATININE 0.66 mg/dl (0.60-1.20); POTASSIUM 3.7 mmol/L (3.5-5.1)
[2018-01-04 07:21] VITALS: BP 177/78; PULSE 90; TEMP 36.8; O2SAT 90
[2018-01-04] MEDS: OXYCODONE HCL IR 5 MG TAB (IMMEDIATE RELEASE) PO PRN (07:38)
--- NOTE | 2018-01-04 08:55 | Discharge Summary ---
Orthopedic Discharge Summary Admission Date/Reason January 02, 2018 at 07:30 Lumbar Spinal Stenosis. Discharge Date/Disposition January 04, 2018 Home Diagnosis Principal Diagnosis: Lumbar spinal stenosis Admission Physical Exam As per Admitting History & Physical. Hospital Course Patient underwent lumbar decompression and in situ fusion. She tolerated this well. She was taken to the orthopedic floor possibly. Postop day #1 she was up and tolerating physical therapy nicely. She progressed the postop day #2. She was subsequently discharged home. Discharge orders and instructions found in the chart for further review. Discharge Instructions Please refer to the electronic Patient Visit Report (Discharge Instructions) for additional information.
[2018-01-04 09:17] VITALS: BP 148/76
[2018-01-04] MEDS: ONDANSETRON INJ 2 MG/ML 2 ML VIAL IV PRN ×2 (14:13→21:23)
[2018-01-04 15:05] VITALS: BP 156/69; PULSE 106; TEMP 37.1; O2SAT 91
[2018-01-04 16:00] VITALS: BP 156/69; PULSE 106; TEMP 37.1; O2SAT 91
[2018-01-04] MEDS ORDERED: NURSING VERBAL MED ORDER ONE (18:30)
[2018-01-04] MEDS: LACTATED RINGER'S 1000ML 1,000 ML IV SCH (19:16)
[2018-01-04] MEDS: DOCUSATE SODIUM/SENNA 50/8.6MG TAB PO SCH (21:00)
[2018-01-04] MEDS: ATORVASTATIN 10 MG TAB PO SCH (21:00)
[2018-01-04] MEDS: ACETAMINOPHEN IV 100 ML IV PRN (21:23)
[2018-01-04 23:16] VITALS: BP 168/91; PULSE 101; TEMP 37; O2SAT 92
[2018-01-05 03:16] VITALS: BP 168/85
[2018-01-05] MEDS ORDERED: NURSING VERBAL MED ORDER ONE (06:00)
[2018-01-05] MEDS: OXYCODONE HCL IR 5 MG TAB (IMMEDIATE RELEASE) PO PRN ×2 (06:02→11:10)
[2018-01-05 07:40] VITALS: BP 157/84; PULSE 101; TEMP 36.5; O2SAT 91
[2018-01-05] MEDS: LACTATED RINGER'S 1000ML 1,000 ML IV SCH (08:59)
[2018-01-05 11:17] VITALS: BP 157/84; PULSE 101; TEMP 36.5; O2SAT 91
--- NOTE | 2018-01-05 13:29 | Progress Note ---
Progress Note Date of Service January 05, 2018. Progress Note Patient's back pain is controlled. Leg symptoms improved. She is ambulating nicely. Vital signs are stable. MATHIEU drain decreasing appropriately. On exam she has reasonable strength testing is comfortable sitting in chair. Assessment status post lumbar decompression fusion per plan at this time she was discharged home in the care of her family.
== END 2018-01-05 11:58 | disposition home or self-care (01) | DRG 460 ==
LOC: C.ACU 05:42 → C.3E 07:30 → ENRESERV 09:36
PROVIDERS: ADMIT Orthopaedic Surgery Orthopaedic Surgery of the Spine; ATTEND Orthopaedic Surgery Orthopaedic Surgery of the Spine
PROC: 0ST20ZZ Resection of Lumbar Vertebral Disc, Open Approach (ICD-10-PCS; principal; 2018-01-02 07:45)
PROC: 0SG0071 Fusion of Lumbar Vertebral Joint with Autologous Tissue Substitute, Posterior Approach, Posterior Column, Open Approach (ICD-10-PCS; principal; 2018-01-02 07:45)
DX: M48.062 Spinal stenosis, lumbar region with neurogenic claudication (principal); I10 Essential (primary) hypertension; E78.5 Hyperlipidemia, unspecified; K21.9 Gastro-esophageal reflux disease without esophagitis; M81.0 Age-related osteoporosis without current pathological fracture; Z98.1 Arthrodesis status; Z98.42 Cataract extraction status, left eye; Z87.440 Personal history of urinary (tract) infections; Z79.899 Other long term (current) drug therapy; Z88.1 Allergy status to other antibiotic agents; Z88.6 Allergy status to analgesic agent; Z88.8 Allergy status to other drugs, medicaments and biological substances